=== PATIENT | male | born 1970 | race Caucasian/White ===

== ENCOUNTER 2022-06-21 15:43 | Emergency (ER) | payer BC, OTHER ==
[2022-06-21 15:58] VITALS: BP 112/73; PULSE 61; RESP 20; TEMP 97.5; BMI 30.9
[2022-06-21] MEDS ORDERED: ACETAMINOPHEN 1000 MG/100 ML BAG IVPB ONE (16:46)
[2022-06-21] MEDS ORDERED: ACETAMINOPHEN INJECTION 100 ML IVPB ONE (17:05)
[2022-06-21 17:47] LABS: BASO % 0.5 % (0-2.0); EOS % 1.9 % (0-4.5); HEMATOCRIT 41.8 % (35.4-49); HEMOGLOBIN 13.5 GM/dL (11.7-16.9); LYMPH % 25.2 % (8-40); MCH 26.6 pg (25.7-33.7); MCHC 32.3 g/dl (32.0-35.9); MEAN CELL VOLUME 82.4 fl (80-96); MEAN PLT VOLUME 8.8 fl (7.5-11.1); MONO % 8.5 % (3.8-10.2); NEUT % 63.9 % (42.8-82.8); PLATELET COUNT 213 10^3/uL (134-434); RBC 5.07 M/mm3 (4.00-5.60); RDW 13.9 % (11.9-15.9); WHITE BLOOD COUNT 5.5 K/mm3 (4.0-10.0)
[2022-06-21 17:53] LABS: CALCIUM 9.1 mg/dL (8.5-10.1)
[2022-06-21 17:55] LABS: ALBUMIN 3.9 g/dl (3.4-5.0); BLOOD UREA NITROGEN 15.5 mg/dL (7-18)
[2022-06-21 17:58] LABS: BILIRUBIN,TOTAL 0.6 mg/dL (0.2-1); TOT PROT 6.5 g/dl (6.4-8.2)
== END 2022-06-21 18:52 | disposition home or self-care (01) ==
LOC: JER 15:43
PROC: 3E0333Z Introduction of Anti-inflammatory into Peripheral Vein, Percutaneous Approach (ICD-10-PCS; principal; 2022-06-21)
DX: R07.89 Other chest pain (principal)
CPT/HCPCS: 0241U-QW; 36415; 71046-TC-FY; 80053; 84484; 85025; 93005; 93010; 99285-25